=== PATIENT | female | born 1985 | race Caucasian/White ===

== ENCOUNTER 2016-09-04 16:14 | Emergency (ER) | payer OTHER ==
--- NOTE | 2016-09-04 16:35 | ED Physician Documentation ---
Headache - HISTORIAN Historian: patient - HPI Chief Complaint: Nausea,Vomiting,Diarrhea Onset: days ago (3 day) Timing: gradual Exposure To: none Severity: moderate Associated Symptoms: fever, chills, nausea, vomiting. denies: sweating, problems with vision, sensitivity to light, neck pain, stiffness Preceding Symptoms: denies: visual disturbance Exacerbated By: movement Further Comments: yes (Du states that she has some nausea and vomiting for three days. Has felt hot with some chills has not checked her temperature. No diarrhea noted. Has had a headache assoicated with the illness. Global in nauture. No head trauma noted. Has some body achs. No rash. Denies . Complains of headache global headaches.) - ROS NEURO/PSYCH: denies: confusion, anxiety EYES/ENT: denies: sore throat, difficulty swallowing GI/: abdominal pain (epigastric area), diarrhea MS/SKIN/LYMPH: denies: back pain, rash, skin lesions - PAST HX Medical History: other (HTN, anxiety, PTSD, asthma, boarderline diabetes) Surgical History: appendectomy, other (hysterectomy, BTL, D&C, ) Allergies/Adverse Reactions: Allergies Allergy/AdvReac Type Severity Reaction Status Date / Time prazosin HCl [From Minipress] Allergy Intermediate Tongue Verified 09/04/16 18: 06 Swelling Home Medications: Ambulatory Orders Medication Instructions Recorded Albuterol Sulfate [Proair HFA] 2 puff IH Q4 04/24/16 Fluoxetine HCl [Prozac] 40 mg PO D 08/24/16 Clonazepam [Klonopin] 3 mg PO 09/04/16 Ondansetron HCl Rapdis [Zofran Odt] 4 mg PO Q8 PRN #10 tab 09/04/16 - SOCIAL HX Smoking History: greater than 1 pack/day (1 ppd) Alcohol Use: rarely Drug Use: none - Family HX Family History: none - VITAL SIGNS Vital Signs: Vital Signs Temp Pulse Resp BP Pulse Ox 97.7 F 75 16 136/85 100 09/04/16 16:15 09/04/16 16:15 09/04/16 16:15 09/04/16 16:15 09/04/16 16:15 - REVIEWED ASSESSMENTS Nursing Assessment Reviewed: Yes Vitals Reviewed: Yes ED Results Lab/Radiology - Lab Results Lab Results: Lab Results 09/04/16 09/04/16 17:14 17:14 WBC 9.00 K/ul K/ul (4.00-12.00) RBC 4.77 M/ul M/ul (3.90-5.20) Hgb 15.7 g/dL g/dL (12.0-16.0) Hct 45.3 % % (34.5-46.5) MCV 94.9 fl fl (80.0-100.0) MCH 33.0 pg pg (28.0-34.0) MCHC 34.7 g/dL g/dL (30.0-36.0) RDW 13.9 % % (11.3-14.3) Plt Count 219 K/mm3 K/mm3 (130-400) Neut % (Auto) 79.6 % H % (39.0-79.0) Lymph % (Auto) 16.0 % % (16.0-50.0) Winston % (Auto) 2.4 % % (0.0-11.0) Eos % (Auto) 0.9 % % (0.0-6.8) Baso % (Auto) 0.3 (0.0-1.5) Neut # 7.2 # k/uL # k/uL (1.4-7.7) Lymph # 1.4 # k/uL # k/uL (0.6-4.0) Winston # 0.2 # k/uL # k/uL (0.0-0.9) Eos # 0.1 # k/uL # k/uL (0.0-0.6) Baso # 0.0 # k/uL # k/uL (0.0-0.5) Reactive Lymphs % 0.7 % % (0.0-5.0) Reactive Lymphs # 0.1 # k/uL # k/uL (0.0-0.8) Sodium 143 mmol/L mmol/L (136-145) Potassium 3.7 mmol/L mmol/L (3.5-5.0) Chloride 108 mmol/L mmol/L (98-110) Carbon Dioxide 36 mmol/L H mmol/L (20-32) BUN 11 mg/dL mg/dL (10-26) Creatinine 0.6 mg/dL mg/dL (0.4-1.5) Estimated Creat Clear 179 Est GFR ( Amer) > 60 (60 - ) Est GFR (Non-Af Amer) > 60 (60 - ) Glucose 91 mg/dL mg/dL (70-99) Calcium 10.9 mg/dL H mg/dL (8.5-10.5) Total Bilirubin 0.4 mg/dL mg/dL (0.2-1.2) AST 37 U/L U/L (0-41) ALT 56 U/L H U/L (0-45) Alkaline Phosphatase 160 U/L H U/L (46-116) Total Protein 8.1 g/dL g/dL (6.0-8.5) Albumin 5.4 g/dL g/dL (3.0-5.5) Amylase 52 U/L U/L (20-104) - Orders Orders: ED Orders Category Date Time Status Place Saline Lock/IV Now Care 09/04/16 16:44 Active AMYLASE Routine Lab 09/04/16 17:14 Completed CBC/PLATELET/DIFF Routine Lab 09/04/16 17:14 Completed CMP Routine Lab 09/04/16 17:14 Completed URINALYSIS Routine Lab 09/04/16 Ordered 0.9 % Sodium Chloride [Normal Saline] 1,000 ml Med 09/04/16 17:00 Ordered IV .Q1H Acetaminophen [Ofirmev] Med 09/04/16 16:45 Discontinued 500 mg IV NOW ONE Ketorolac Tromethamine [Toradol] Med 09/04/16 17:51 Discontinued 30 mg IVP NOW ONE Ondansetron HCl/Pf [Zofran 4 mg/2 ml] Med 09/04/16 16:47 Discontinued 4 mg IVP NOW ONE Headache Physical Exam - EXAM General Appearance: alert, mild distress EENT: no facial swelling, eyes nml inspection, PERRL Neck: normal inspection, thyroid normal Respiratory: no resp distress, chest non-tender, breath sounds normal. No: wheezes, rales, rhonchi CVS: reg. rate & rhythm, heart sounds nml, murmur Abdomen: nml bowel sounds, no distention, tenderness (epigastric area) Skin: color nml, no rash Extremitites: non-tender, normal range of motion, no evidence of injury - NEURO/PSYCH Higher Functions: alert, oriented x3, nml speech Cranial: nml as tested, no evidence of acute CVA Cerebellar: nml as tested Sensorimotor: motor nml, sensation nml Discharge Clincal Impression: Viral gastroenteritis Nausea & vomiting Qualifiers: Vomiting type: unspecified Vomiting Intractability: non-intractable Qualified Code(s): R11.2 - Nausea with vomiting, unspecified Prescriptions: Ondansetron HCl Rapdis [Zofran Odt] 4 mg PO Q8 PRN #10 tab PRN Reason: Nausea / Vomiting Referrals: Primary Doctor,No [Primary Care Provider] - 2 Days Additional Instructions: Home and rest. Try to take in some clear liquids with small sips over the next 8 hours and advance as needed. Take Zofran as needed for nausea. If symptoms do not improve to follow-up with your primary care provider or return to the ED. Home Medications: Ambulatory Orders Albuterol Sulfate [Proair HFA] 2 puff IH Q4 04/24/16 Fluoxetine HCl [Prozac] 40 mg PO D 08/24/16 Clonazepam [Klonopin] 3 mg PO 09/04/16 Ondansetron HCl Rapdis [Zofran Odt] 4 mg PO Q8 PRN #10 tab 09/04/16 Condition: Stable Disposition: 01 HOME, SELF-CARE Decision to Admit: NO Date of Decison to Admit: 09/04/16 Decision Time: 18:20
[2016-09-04] MEDS ORDERED: ACETAMINOPHEN 1,000 MG/100 ML INJ IV ONE (16:45)
[2016-09-04] MEDS ORDERED: ONDANSETRON HCL/PF 4 MG/ 2ML VIAL IVP ONE (16:47)
[2016-09-04] MEDS ORDERED: 0.9 % SODIUM CHLORIDE 1,000 ML IV SCH (17:00)
[2016-09-04] MEDS ORDERED: 0.9 % SODIUM CHLORIDE 1,000 ML IV ONE (17:10)
[2016-09-04 17:23] LABS: BASOPHILS % 0.3 (0.0-1.5); EOSINOPHILS % 0.9 % (0.0-6.8); LYMPHOCYTES # 1.4 # k/uL (0.6-4.0); MONOCYTES # 0.2 # k/uL (0.0-0.9); MONOCYTES % 2.4 % (0.0-11.0); NEUTROPHILS # 7.2 # k/uL (1.4-7.7)
[2016-09-04 17:36] LABS: eGFR (African) > 60; eGFR (Non-African) > 60
[2016-09-04] MEDS ORDERED: KETOROLAC TROMETHAMINE 30 MG/1ML VIAL IVP ONE (17:51)
[2016-09-04 18:44] VITALS: BP 171/89
== END 2016-09-04 18:30 | disposition home or self-care (01) ==
LOC: ED 16:14
DX: A08.4 Viral intestinal infection, unspecified (principal)
CPT/HCPCS: 80053; 82150; 85025; J1885; J2405; J7030; 96361; 96374; 96375; 99283; S1016

== ENCOUNTER 2016-09-27 18:58 | Emergency (ER) | payer OTHER ==
--- NOTE | 2016-09-27 19:22 | ED Physician Documentation ---
Eye Problem - HISTORIAN Historian: patient - HPI Stated Complaint: FB eye Chief Complaint: Eye Problems Additional Information: Says she has FB left eye for an hour. Sitting in car on hospital parking lot for at least 45 minutes talking, plucking eyebrows, before she came into ER. FB sensation since about 1700, Trying to have sex and when she took partner's shirt off, she thinks she flipped piece of wood into eye. Rinsed eye in the shower. Use abx gtts and gel drops. Apparent Injury: no Eyes Irrigated With:: 1L NS in ER - ROS CONST: no problems - PAST HX Past History: none Allergies/Adverse Reactions: Allergies Allergy/AdvReac Type Severity Reaction Status Date / Time prazosin HCl [From Minipress] Allergy Intermediate Tongue Verified 09/27/16 19: 26 Swelling Home Medications: Ambulatory Orders Medication Instructions Recorded Fluoxetine HCl [Prozac] 40 mg PO DAILY 09/27/16 - SOCIAL HX Smoking History: non-smoker - FAMILY HX Family History: no significant history - VITAL SIGNS Vital Signs: Vital Signs Temp Pulse Resp BP Pulse Ox 171/89 09/04/16 18:30 - REVIEWED ASSESSMENTS Nursing Assessment Reviewed: Yes Vitals Reviewed: Yes ED Results Lab/Radiology - Orders Orders: ED Orders Category Date Time Status Further Nursing Orders 1T Care 09/27/16 19:17 Active Eye Problem Physical Exam - Physical Exam General Appearance: alert, mild distress Examined with Slit Lamp: No Eyelids: nml inspection. No: foreign body under eyelid (L) Conjunctiva and Sclera: injected (L) (slight) Corneas: nml inspection (left). No: foreign body (L), fluorescein dye uptake (L ) EOM: other (conjugate movements) Pupils: equal Anterior Chambers: nml inspection (left) Head/ENT: nml inspection Skin: nml color, warm Neck/Back: nml inspection Respiratory: no resp distress Neuro/Psych: neuro intact, CN's nml as tested Discharge Clincal Impression: foreign body sensation left eye Additional Instructions: Do not rub your eye. Use the eye drops as prescribed for a week. Home Medications: Ambulatory Orders Fluoxetine HCl [Prozac] 40 mg PO DAILY 09/27/16 Condition: Good Disposition: 01 HOME, SELF-CARE Decision to Admit: NO Decision Time: 19:55
[2016-09-27 19:34] VITALS: BP 126/72
[2016-09-27] MEDS ORDERED: PROPARACAINE HCL 0.5% OPTH OP ONE (19:46)
== END 2016-09-27 20:02 | disposition home or self-care (01) ==
LOC: ED 18:58
DX: T15.92XA Foreign body on external eye, part unspecified, left eye, initial encounter (principal); X58.XXXA Exposure to other specified factors, initial encounter; Y93.9 Activity, unspecified; Y99.9 Unspecified external cause status
CPT/HCPCS: 99283; A9270-GY; J7030